=== PATIENT | female | born 1950 | race Caucasian/White ===

== ENCOUNTER 2021-12-03 08:36 | Outpatient (CLI) | payer MEDICARE, SELFPAY | END 2021-12-03 08:37 | disposition home or self-care (01) | LOC: FRMREF 12-13 09:55 | PROVIDERS: PCP Family Medicine; Visit Provider Family Medicine | DX: I10 Essential (primary) hypertension (principal); N39.0 Urinary tract infection, site not specified; R35.0 Frequency of micturition; E11.9 Type 2 diabetes mellitus without complications | CPT/HCPCS: 87086 ==

== ENCOUNTER 2022-02-03 07:51 | Outpatient (CLI) | payer MEDICARE, SELFPAY | END 2022-02-03 07:52 | disposition home or self-care (01) | LOC: FRMREF 02-10 12:33 | PROVIDERS: PCP Family Medicine; Visit Provider Family Medicine | DX: Z01.818 Encounter for other preprocedural examination (principal); I10 Essential (primary) hypertension; F41.9 Anxiety disorder, unspecified; E11.9 Type 2 diabetes mellitus without complications | CPT/HCPCS: 87086 ==

== ENCOUNTER 2022-09-30 20:00 | Outpatient (CLI) | payer MEDICARE, SELFPAY | END 2022-09-30 20:01 | disposition home or self-care (01) | PROVIDERS: PCP Family Medicine; Visit Provider Family Medicine | DX: I10 Essential (primary) hypertension (principal); F41.9 Anxiety disorder, unspecified | CPT/HCPCS: A0998 ==

== ENCOUNTER 2024-03-10 09:30 | Outpatient (CLI) | payer MEDICARE, SELFPAY ==
--- NOTE | 2024-03-10 10:15 | CRLHL7_ITS ---
For Patients: As a result of the Century Cures Act, medical imaging exams and procedure reports are released immediately into your electronic medical record. You may view this report before your referring provider. If you have questions, please contact your health care provider. INDICATION: Tinnitus. COMPARISON: 05/06/2013. TECHNIQUE: Axial diffusion-weighted sequence. Yuhb-fj-uhzmed MRA. 3D reconstructed images. FINDINGS: No restricted diffusion to suggest acute ischemia. Bilateral carotid siphons are patent. No aberrant course of the intracranial ICAs. Patent [place] with diminutive bilateral posterior communicating arteries. Visualized bilateral AARON and MCA circulations are patent with no focal high-grade stenosis or aneurysm. Bilateral UI PROGRAMMER circulations are patent with no stenosis or aneurysm. Patent codominant vertebrobasilar system. IMPRESSION: Normal MRA head Dictated by Espinoza Guadarrama MD @ 03/10/2024 11:38:04 AM (Electronically Signed)
--- NOTE | 2024-03-10 11:15 | CRLHL7_ITS ---
For Patients: As a result of the Century Cures Act, medical imaging exams and procedure reports are released immediately into your electronic medical record. You may view this report before your referring provider. If you have questions, please contact your health care provider. CLINICAL HISTORY: Tinnitus, unspecified ear TECHNIQUE: The carotid circulations and the vertebral arteries in the neck were examined with collado-scale ultrasound, color-flow and Doppler spectral analysis. Degrees of stenosis were determined using SRU 2002 Consensus Panel Criteria. FINDINGS: Sonographic images demonstrate bilateral atherosclerotic plaque formation without suspicious soft tissue mass. There was antegrade blood flow demonstrated within the vertebral arteries and the subclavian arteries demonstrated a normal triphasic waveform. The spectral Doppler tracings of the common carotid, internal and external carotid arteries demonstrate no abnormal turbulence or spectral broadening. There was no significant elevation of peak systolic blood flow which would indicate a hemodynamically-significant stenosis by SRU criteria. The ICA/CCA peak systolic velocity ratio measures 1.1 on the right and 1.3 on the left. IMPRESSION: Less than 50 percent stenosis of the internal carotid arteries bilaterally. Dictated by Roni Hernandez MD @ 03/10/2024 12:02:56 PM (Electronically Signed)
== END 2024-03-10 09:31 | disposition home or self-care (01) ==
PROVIDERS: PCP Family Medicine; Visit Provider Otolaryngology
DX: H93.13 Tinnitus, bilateral (principal); I65.23 Occlusion and stenosis of bilateral carotid arteries
CPT/HCPCS: 70544; 93880